=== PATIENT | male | born 1940 | race Caucasian/White ===

== ENCOUNTER 2016-07-30 08:30 | Inpatient (IN) | payer OTHER ==
[~2016-07-30] VITALS: Ht 172.7 cm; Wt 80.0 kg
[~2016-07-30 08:30] MED LIST: ASPIR LOW81 MG PO; LEVOTHYROXIN0.025 M2 PO; LISINOPRIL20 MG PO; TAMSULOSIN HCL0.4 MG PO
[2016-07-30 09:26] LABS: CALCIUM 8.6 mg/dL (8.5-10.1); CARBON DIOXIDE 28.1 mmol/L (21-32); CHLORIDE SERUM 106 mmol/L (98-107); CREATININE SERUM 0.9 mg/dL (0.7-1.3); GLUCOSE SERUM 125 mg/dL (74-106); POTASSIUM SERUM 4.2 mmol/L (3.5-5.1); SODIUM SERUM 142 mmol/L (136-145)
[2016-07-30 09:28] LABS: BASOPHIL % 0.4 % (0-2); PLATELET COUNT 144 x10^3mcL (130-400)
[2016-07-30 09:32] LABS: ALBUMIN 3.7 g/dL (3.4-5.0); ALKALINE PHOSPHATASE 57 U/L (46-116); ALT/SGPT 20 U/L (16-63); AST/SGOT 17 U/L (15-37); BILIRUBIN TOTAL 1.08 mg/dL (0.20-1.00); LIPASE 103 IU/L (73-393); MAGNESIUM 2.1 mg/dL (1.8-2.4); TOTAL PROTEIN, SERUM 6.9 g/dL (6.4-8.2)
[2016-07-30 12:06] LABS: CHOLESTEROL/HDL RATIO 4.2; PHOSPHOROUS 3.2 mg/dL (2.5-4.9)
[2016-07-30 12:20] LABS: T3 TOTAL 0.97 ng/mL
[2016-07-30 12:32] LABS: FREE T4 0.82 ng/dL (0.76-1.46); FREE THYROXINE INDEX 2.3 ug/dL (1.4-4.5); T4(THYROXINE) 5.7 ug/dL (4.7-13.3)
[2016-07-30 13:14] VITALS: BP 147/96
[2016-07-30 17:26] VITALS: BP 168/77
[2016-07-30 21:32] VITALS: BP 157/60
[2016-07-31 05:48] VITALS: BP 164/61
[2016-07-31 07:07] LABS: BASOPHIL % 0.7 % (0-2); RED CELL DISTRIBUTION WIDTH 14.2 % (11.5-14.5)
[2016-07-31 07:11] LABS: PLATELET COUNT 125 x10^3mcL (130-400)
[2016-07-31 07:29] LABS: CALCIUM 8.2 mg/dL (8.5-10.1); CARBON DIOXIDE 29.3 mmol/L (21-32); CHLORIDE SERUM 108 mmol/L (98-107); GLUCOSE SERUM 100 mg/dL (74-106); MAGNESIUM 2.2 mg/dL (1.8-2.4); PHOSPHOROUS 2.9 mg/dL (2.5-4.9); POTASSIUM SERUM 4.3 mmol/L (3.5-5.1); SODIUM SERUM 142 mmol/L (136-145)
[2016-07-31 11:00] VITALS: BP 121/64
[2016-07-31 15:01] LABS: microscopic required? NO
[2016-07-31 15:47] LABS: urine erythrocyte NEGATIVE (NEGATIVE)
[2016-07-31 15:56] LABS: AMPHETAMINE QUAL UR NONE DETECTED (NEG <=1000)
[2016-07-31 18:31] VITALS: BP 139/55
[2016-07-31 21:16] VITALS: BP 153/54
[2016-08-01 06:36] VITALS: BP 153/64
[2016-08-01 06:52] LABS: CALCIUM 8.5 mg/dL (8.5-10.1); CARBON DIOXIDE 29.2 mmol/L (21-32); CHLORIDE SERUM 109 mmol/L (98-107); CREATININE SERUM 0.9 mg/dL (0.7-1.3); GLUCOSE SERUM 99 mg/dL (74-106); SODIUM SERUM 145 mmol/L (136-145)
[2016-08-01 07:05] LABS: BASOPHIL % 0.4 % (0-2); RED CELL DISTRIBUTION WIDTH 13.8 % (11.5-14.5)
[2016-08-01 07:06] LABS: PLATELET COUNT 117 x10^3mcL (130-400)
[2016-08-01 09:14] VITALS: BP 112/60
[2016-08-01] MEDS ORDERED: PRI20 PO (11:12)
[2016-08-01 12:16] VITALS: BP 112/60
== END 2016-08-01 13:21 | disposition home or self-care (01) | DRG 241 ==
LOC: ED 08:30 → MU 11:22 → DU 11:22 → MU 19:18
PROVIDERS: Emergency Medicine; Family Medicine; Internal Medicine Gastroenterology; ADMIT Family Medicine
PROC: 0DB68ZX Excision of Stomach, Via Natural or Artificial Opening Endoscopic, Diagnostic (ICD-10-PCS; principal; 2016-07-31 09:30)
DX: K26.7 Chronic duodenal ulcer without hemorrhage or perforation (principal); I10 Essential (primary) hypertension; K29.80 Duodenitis without bleeding; I73.9 Peripheral vascular disease, unspecified; N40.0 Benign prostatic hyperplasia without lower urinary tract symptoms; E03.9 Hypothyroidism, unspecified; E78.5 Hyperlipidemia, unspecified; Z68.26 Body mass index [BMI] 26.0-26.9, adult; Z87.891 Personal history of nicotine dependence; Z87.11 Personal history of peptic ulcer disease
CPT/HCPCS: 43235; 80307; 82962; 83880; 84439; C9113; J1200; J1610; J2250; J2270; J2310; J2405; J3010; J3490; J7030; Q0092